=== PATIENT | female | born 1975 | race Caucasian/White ===

== ENCOUNTER 2024-04-09 12:12 | Inpatient (IN) | payer BC ==
[2024-04-09] VITALS (16 sets, daily range): BP systolic 102–127; BP diastolic 57–75; PULSE 84–104; RESP 11–18; TEMP 98.6; O2SAT 93–98
[~2024-04-09] VITALS: Ht 165.1 cm; Wt 95.2 kg
[2024-04-09 13:05] LABS: BASOPHILS # (AUTO) 0.1 X10'3 (0-0.2); BASOPHILS % (AUTO) 0.4 % (0-1); EOSINOPHILS % (AUTO) 0.1 % (0-6); HEMATOCRIT 39.2 % (35.0-45.0); HEMOGLOBIN 13.2 g/dl (12.0-16.0); LYMPHOCYTES # (AUTO) 1.7 X10'3 (1.1-4.8); LYMPHOCYTES % (AUTO) 14.1 % (21-51); MEAN CORPUSCULAR HEMOGLOBIN 30.8 PG (27.0-31.0); MEAN CORPUSCULAR HGB CONC 33.8 g/dL (33.0-36.5); MEAN CORPUSCULAR VOLUME 91.1 FL (78-98); MEAN PLATELET VOLUME 8.6 FL (7.4-10.4); MONOCYTES # (AUTO) 1.2 X10'3 (0-0.9); NEUTROPHILS # (AUTO) 9.2 X10'3 (1.8-7.7); NEUTROPHILS % (AUTO) 75.4 % (42-75); PLATELET COUNT 262 X10'3 (140-440); WHITE BLOOD COUNT 12.2 X10'3 (4.5-11.0)
[2024-04-09 13:22] LABS: INR 1.1 INR; PROTHROMBIN TIME 11.4 SECONDS (9.0-12.0)
[2024-04-09] MEDS ORDERED: LIDOcaine 1% w/EPI 1:100,000 inj. MDV 50 ML VIAL ONE (13:22)
[2024-04-09] MEDS ORDERED: BUPIVAcaine 2.5mg/ml inj 50ml vial (contains preservative) ONE (13:22)
[2024-04-09 13:32] LABS: ALBUMIN 3.4 G/DL (3.4-5.0); BLOOD UREA NITROGEN 10 MG/DL (7-18); BUN/CREATININE RATIO 12.8 (10.0-20.0); CALCIUM 8.5 MG/DL (8.5-10.1); CREATININE 0.78 MG/DL (0.40-0.90); TOTAL CARBON DIOXIDE 24.5 MMOL/L (24-32); eCRCL 80 ML/MIN; eGFR 79 ML/MIN
[2024-04-09 13:48] LABS: ANION GAP 7 (8-16); CHLORIDE 106 MMOL/L (99-107); GLUCOSE 101 MG/DL (70-104); POTASSIUM 3.6 MMOL/L (3.5-5.1); SODIUM 137 MMOL/L (135-145)
[2024-04-09] MEDS ORDERED: sevoflurane 250ml liquid IH ONE (13:50)
[2024-04-09] MEDS ORDERED: fentaNYL/PF 50MCG/1 ML 2ML syringe ONE (13:56)
[2024-04-09] MEDS ORDERED: propofol inj 20 ML IV ONE (13:56)
[2024-04-09] MEDS ORDERED: midazolam 1 mg/ML 2ml injection ONE (13:56)
[2024-04-09] MEDS ORDERED: ondansetron/PF 4mg/2ml inj ONE (14:12)
[2024-04-09] MEDS ORDERED: dexamethasone sod phosphate 4mg/ml inj. ONE (14:12)
[2024-04-09] MEDS ORDERED: rocuronium 10mg/ml inj IV ONE (14:12)
[2024-04-09] MEDS ORDERED: ceFOXitin 1000 MG inj ONE ×2 (14:18)
[2024-04-09] MEDS ORDERED: ringers solution, lacted 1,000 ML IV SCH (14:35)
[2024-04-09] MEDS ORDERED: enalaprilat dihydrate 2.5mg/2ml vial IV PRN (14:35)
[2024-04-09] MEDS ORDERED: morphine 4 MG/ML inj SYRINge IV PRN (14:35)
[2024-04-09] MEDS ORDERED: proCHLORperazine 10 MG/2 ml inj IV PRN (14:35)
[2024-04-09] MEDS ORDERED: morphine 2 MG/ML inj. syringe IV PRN ×2 (14:35→15:00)
[2024-04-09] MEDS ORDERED: meperidine/PF 25mg/ml syringe IV PRN ×3 (14:35)
[2024-04-09] MEDS ORDERED: labetalol 20mg/4ml (5mg/ml) syringe IV PRN (14:35)
[2024-04-09] MEDS ORDERED: magnesium sulf-water 2g/50mL 50 ML IV PRN (15:00)
[2024-04-09] MEDS ORDERED: acetaminophen 325mg tablet PO PRN (15:00)
[2024-04-09] MEDS ORDERED: potassium Cl 20 mEq SR tablet PO PRN ×2 (15:00)
[2024-04-09] MEDS ORDERED: normal saline 1000ml 1,000 ML IV SCH (15:00)
[2024-04-09] MEDS ORDERED: magnesium Cl slow-release 64mg tablet PO PRN (15:00)
[2024-04-09] MEDS ORDERED: potassium Cl 40MEQ/1/2NS 520ml 520 ML IV PRN (15:00)
[2024-04-09] MEDS ORDERED: HYDROcodone/acetaminophen 5mg/325mg tablet PO PRN (15:00)
[2024-04-09] MEDS ORDERED: ondansetron/PF 4mg/2ml inj IV PRN (15:00)
[2024-04-09] MEDS ORDERED: magnesium sulf-water 4G/100mL 100 ML IV PRN (15:00)
[2024-04-09] MEDS: ondansetron/PF 4mg/2ml inj IV PRN (17:04)
[2024-04-09] MEDS: oxyCODONE/APAP 5-325mg tablet PO PRN (17:10)
[2024-04-09] MEDS ORDERED: docusate sod 100mg capsule PO SCH (20:00)
[2024-04-09] MEDS ORDERED: K and/or MAG REPLACEMENT MC SCH (20:00)
== END 2024-04-09 17:25 | disposition home or self-care (01) | DRG 399 ==
LOC: ER 12:14 → PAS IN 15:06
PROVIDERS: ADMIT Internal Medicine; ATTEND Internal Medicine
PROC: 8E0W4CZ Robotic Assisted Procedure of Trunk Region, Percutaneous Endoscopic Approach (ICD-10-PCS; 2024-04-09)
PROC: 0DTJ4ZZ Resection of Appendix, Percutaneous Endoscopic Approach (ICD-10-PCS; principal; 2024-04-09 13:50)
DX: K35.80 Unspecified acute appendicitis (principal)
CPT/HCPCS: 99285; Z7506; Z7508; 36415; 71045; 80048; 85025; 85610; 93005; A4215; A4615; A4618; J0694; J1100; J2003; J2250; J2405; J2704; J2710; J3010; J3490; J7120